=== PATIENT | female | born 1940 | race Caucasian/White ===

== ENCOUNTER 2020-12-06 10:55 | Emergency (ER) | payer MEDICARE ==
[~2020-12-06] VITALS: Ht 167.6 cm; Wt 66.8 kg
[2020-12-06 11:28] LABS: BASO % 0.5 % (0.0-1.0); EOS % 0.5 % (1.0-4.0); HEMATOCRIT 44.1 % (37.0-47.0); LYMPH # 1.2 10*3/uL (1.3-4.4); LYMPH % 14.6 % (27.0-41.0); MEAN CELL VOLUME 95.2 fl (81.0-99.0); MEAN CORPUSCULAR HGB 29.4 pg (27.0-31.0); MEAN CORPUSCULAR HGB CONC 30.8 g/dl (33.0-37.0); MEAN PLATELET VOLUME 11.6 fl (9.6-12.3); MONO # 0.3 10*3/uL (0.1-1.0); MONO % 3.5 % (3.0-9.0); NEUT # 6.7 10*3/uL (2.3-7.9); NEUT % 80.5 % (47.0-73.0); PLATELET COUNT AUTOMATED 190 10*3/uL (130-400); RED BLOOD COUNT 4.63 10*6/uL (4.10-5.10); RED CELL DISTRI WIDTH 13.6 % (0-14.5); WHITE BLOOD COUNT 8.4 10*3/uL (4.8-10.8)
[2020-12-06 11:38] LABS: ACT PARTIAL THROMBO TIME 28.4 SECONDS (20.0-32.1); INTERNATIONAL NORM RATIO 1.1 (2.0-3.5)
[2020-12-06 11:45] LABS: ALBUMIN 3.2 gm/dl (3.1-4.5); ALKALINE PHOSPHATASE 91 U/L (45-117); BUN 21 mg/dl (7-24); CHLORIDE 103 mmol/L (98-107); CREATININE 0.92 mg/dL (0.55-1.02); POTASSIUM 4.5 mmol/L (3.5-5.1); SGOT/AST 229 IU/L (3-35); SGPT/ALT 23 U/L (12-78); SODIUM 138 mmol/L (136-145); TOTAL PROTEIN 7.9 gm/dL (6.4-8.2)
== END 2020-12-06 12:10 | disposition short-term general hospital (02) ==
LOC: ED 10:55
PROVIDERS: Emergency Medicine
DX: I21.3 ST elevation (STEMI) myocardial infarction of unspecified site (principal); J44.9 Chronic obstructive pulmonary disease, unspecified; I10 Essential (primary) hypertension; E11.9 Type 2 diabetes mellitus without complications; F17.200 Nicotine dependence, unspecified, uncomplicated; Z88.0 Allergy status to penicillin

== ENCOUNTER 2021-01-18 15:21 | Inpatient (IN) | payer MEDICARE ==
[~2021-01-18] VITALS: Ht 167.6 cm; Wt 59.5 kg
[2021-01-18 15:40] VITALS: BP 108/52
[2021-01-18 16:00] LABS: BASO % 0.4 % (0.0-1.0); EOS # 0.1 10*3/uL (0.0-0.4); EOS % 1.7 % (1.0-4.0); HEMATOCRIT 34.8 % (37.0-47.0); LYMPH # 1.8 10*3/uL (1.3-4.4); LYMPH % 22.6 % (27.0-41.0); MEAN CELL VOLUME 93.5 fl (81.0-99.0); MEAN CORPUSCULAR HGB 28.8 pg (27.0-31.0); MEAN CORPUSCULAR HGB CONC 30.7 g/dl (33.0-37.0); MEAN PLATELET VOLUME 11.1 fl (9.6-12.3); MONO # 0.3 10*3/uL (0.1-1.0); MONO % 4.1 % (3.0-9.0); NEUT # 5.7 10*3/uL (2.3-7.9); NEUT % 70.8 % (47.0-73.0); PLATELET COUNT AUTOMATED 236 10*3/uL (130-400); RED BLOOD COUNT 3.72 10*6/uL (4.10-5.10); RED CELL DISTRI WIDTH 15.8 % (0-14.5)
[2021-01-18 16:11] LABS: ACT PARTIAL THROMBO TIME 28.4 SECONDS (20.0-32.1); INTERNATIONAL NORM RATIO 1.1 (2.0-3.5)
[2021-01-18 16:16] LABS: ALBUMIN 2.9 gm/dl (3.1-4.5); CREATININE 1.17 mg/dL (0.55-1.02); POTASSIUM 4.3 mmol/L (3.5-5.1); TOTAL PROTEIN 7.3 gm/dL (6.4-8.2)
[2021-01-18 16:18] LABS: TROPONIN I 0.051 ng/ml (<0.045)
[2021-01-18 16:40] VITALS: BP 124/80
[2021-01-18] MEDS ORDERED: LIPITOR40 MG PO (16:58)
[2021-01-18] MEDS ORDERED: CEREFOLIN CAPL1 EACH PO (16:58)
[2021-01-18] MEDS ORDERED: PROTONIX40 MG PO (16:59)
[2021-01-18] MEDS ORDERED: Amaryl2 MG PO (17:00)
[2021-01-18] MEDS ORDERED: LASIX20 MG PO (17:01)
[2021-01-18] MEDS ORDERED: LOPRESSOR25 MG PO (17:02)
[2021-01-18] MEDS ORDERED: METFORMIN850 MG PO (17:03)
[2021-01-18] MEDS ORDERED: BRILINTA90 M1 PO (17:03)
[2021-01-18] MEDS ORDERED: COMPLETE SENIO1 EACH PO (17:04)
[2021-01-18] MEDS ORDERED: TRAZODONE50 MG PO (17:05)
[2021-01-18] MEDS ORDERED: ENTRESTO 49 MG1 EACH PO (17:06)
[2021-01-18 17:30] VITALS: BP 111/73
[2021-01-18 17:45] VITALS: BP 111/63
[2021-01-18 17:47] VITALS: BP 109/53
[2021-01-18 20:00] VITALS: BP 110/60
[2021-01-19] VITALS: BP 101/55
[2021-01-19 06:07] LABS: BASO # 0.1 10*3/uL (0.0-0.1); BASO % 0.6 % (0.0-1.0); EOS # 0.3 10*3/uL (0.0-0.4); EOS % 2.9 % (1.0-4.0); HEMATOCRIT 33.7 % (37.0-47.0); LYMPH % 21.8 % (27.0-41.0); MEAN CELL VOLUME 93.6 fl (81.0-99.0); MEAN CORPUSCULAR HGB 29.2 pg (27.0-31.0); MEAN CORPUSCULAR HGB CONC 31.2 g/dl (33.0-37.0); MEAN PLATELET VOLUME 12.1 fl (9.6-12.3); MONO # 0.4 10*3/uL (0.1-1.0); MONO % 4.1 % (3.0-9.0); NEUT # 6.4 10*3/uL (2.3-7.9); NEUT % 70.3 % (47.0-73.0); PLATELET COUNT AUTOMATED 210 10*3/uL (130-400); RED CELL DISTRI WIDTH 15.9 % (0-14.5); WHITE BLOOD COUNT 9.1 10*3/uL (4.8-10.8)
[2021-01-19 06:24] LABS: ALBUMIN 2.6 gm/dl (3.1-4.5); CREATININE 1.22 mg/dL (0.55-1.02); POTASSIUM 4.8 mmol/L (3.5-5.1); TOTAL PROTEIN 6.6 gm/dL (6.4-8.2)
[2021-01-19 06:28] LABS: THYROID STIM HORMONE (HS) 1.07 uIU/ml (0.358-4.75)
[2021-01-19 07:14] LABS: VITAMIN D, 25-HYDROXY 47.5 ng/mL (30-100)
[2021-01-19 08:00] VITALS: BP 116/64
[2021-01-19 12:00] VITALS: BP 123/53
[2021-01-19 16:03] VITALS: BP 115/63
[2021-01-19 20:05] VITALS: BP 116/54
[2021-01-20] VITALS: BP 127/74
[2021-01-20 06:41] LABS: BUN 32 mg/dl (7-24); CHLORIDE 109 mmol/L (98-107); CREATININE 1.05 mg/dL (0.55-1.02); POTASSIUM 4.9 mmol/L (3.5-5.1); SODIUM 138 mmol/L (136-145)
[2021-01-20 08:00] VITALS: BP 109/53
[2021-01-20 12:00] VITALS: BP 122/67
[2021-01-20 16:00] VITALS: BP 118/57
[2021-01-20 20:00] VITALS: BP 116/57
[2021-01-21] VITALS: BP 117/54
[2021-01-21 06:03] LABS: HEMATOCRIT 31.7 % (37.0-47.0); LYMPH # 0.8 10*3/uL (1.3-4.4); LYMPH % 9.1 % (27.0-41.0); MEAN CELL VOLUME 92.4 fl (81.0-99.0); MEAN CORPUSCULAR HGB 28.9 pg (27.0-31.0); MEAN CORPUSCULAR HGB CONC 31.2 g/dl (33.0-37.0); MEAN PLATELET VOLUME 12.4 fl (9.6-12.3); MONO # 0.2 10*3/uL (0.1-1.0); MONO % 2.1 % (3.0-9.0); NEUT # 8.1 10*3/uL (2.3-7.9); NEUT % 88.4 % (47.0-73.0); PLATELET COUNT AUTOMATED 207 10*3/uL (130-400); RED BLOOD COUNT 3.43 10*6/uL (4.10-5.10); RED CELL DISTRI WIDTH 15.9 % (0-14.5); WHITE BLOOD COUNT 9.2 10*3/uL (4.8-10.8)
[2021-01-21 06:26] LABS: CREATININE 1.1 mg/dL (0.55-1.02); POTASSIUM 4.5 mmol/L (3.5-5.1)
[2021-01-21 08:00] VITALS: BP 133/60
[2021-01-21 12:00] VITALS: BP 131/58
[2021-01-21 16:00] VITALS: BP 126/68
[2021-01-21 20:11] VITALS: BP 116/68
[2021-01-22] VITALS: BP 130/66
[2021-01-22 06:38] LABS: HEMATOCRIT 35.7 % (37.0-47.0); LYMPH # 0.9 10*3/uL (1.3-4.4); LYMPH % 9.2 % (27.0-41.0); MEAN CELL VOLUME 94.4 fl (81.0-99.0); MEAN CORPUSCULAR HGB 28.8 pg (27.0-31.0); MEAN CORPUSCULAR HGB CONC 30.5 g/dl (33.0-37.0); MEAN PLATELET VOLUME 12.4 fl (9.6-12.3); MONO # 0.2 10*3/uL (0.1-1.0); NEUT # 8.5 10*3/uL (2.3-7.9); NEUT % 88.4 % (47.0-73.0); PLATELET COUNT AUTOMATED 251 10*3/uL (130-400); RED BLOOD COUNT 3.78 10*6/uL (4.10-5.10); RED CELL DISTRI WIDTH 15.9 % (0-14.5); WHITE BLOOD COUNT 9.7 10*3/uL (4.8-10.8)
[2021-01-22 07:46] LABS: CREATININE 1.14 mg/dL (0.55-1.02)
[2021-01-22 07:53] LABS: POTASSIUM 5.7 mmol/L (3.5-5.1)
[2021-01-22 08:00] VITALS: BP 120/78
[2021-01-22 12:00] VITALS: BP 136/69
[2021-01-22 16:00] VITALS: BP 113/60
[2021-01-22 20:00] VITALS: BP 136/69
[2021-01-23] VITALS: BP 121/61
[2021-01-23 06:12] LABS: CREATININE 1.18 mg/dL (0.55-1.02)
[2021-01-23 06:20] LABS: POTASSIUM 4.5 mmol/L (3.5-5.1)
[2021-01-23 08:00] VITALS: BP 122/82
[2021-01-23] MEDS ORDERED: PREDNISONE10 MG PO (11:28)
[2021-01-23] MEDS ORDERED: ASPIRIN ADULT L81 M2 PO (11:28)
== END 2021-01-23 14:06 | DRG 291 ==
LOC: ED 15:21 → EDHOLD 16:45 → 4E 16:45
PROVIDERS: Emergency Medicine; Hospitalist; Internal Medicine; Student in an Organized Health Care Education/Training Program; ADMIT Student in an Organized Health Care Education/Training Program; ATTEND Student in an Organized Health Care Education/Training Program
DX: I11.0 Hypertensive heart disease with heart failure (principal); N17.0 Acute kidney failure with tubular necrosis; J96.00 Acute respiratory failure, unspecified whether with hypoxia or hypercapnia; J44.1 Chronic obstructive pulmonary disease with (acute) exacerbation; E87.2 Acidosis; E44.0 Moderate protein-calorie malnutrition; I24.8 Other forms of acute ischemic heart disease; I38 Endocarditis, valve unspecified; Z66 Do not resuscitate; I50.43 Acute on chronic combined systolic (congestive) and diastolic (congestive) heart failure; D64.9 Anemia, unspecified; E87.8 Other disorders of electrolyte and fluid balance, not elsewhere classified; I25.5 Ischemic cardiomyopathy; E87.5 Hyperkalemia; E78.5 Hyperlipidemia, unspecified; F51.01 Primary insomnia; F17.210 Nicotine dependence, cigarettes, uncomplicated; E11.9 Type 2 diabetes mellitus without complications; Z88.0 Allergy status to penicillin; Z88.5 Allergy status to narcotic agent; I25.2 Old myocardial infarction; Z95.5 Presence of coronary angioplasty implant and graft; Z82.49 Family history of ischemic heart disease and other diseases of the circulatory system; Z79.899 Other long term (current) drug therapy; Z79.84 Long term (current) use of oral hypoglycemic drugs; Z71.6 Tobacco abuse counseling; Z68.22 Body mass index [BMI] 22.0-22.9, adult; Z20.822 Contact with and (suspected) exposure to COVID-19